=== PATIENT | female | born 1950 | race Caucasian/White ===

== ENCOUNTER → 2016-11-27 | Outpatient (CLI) | payer MEDICARE, MEDICAID ==
--- NOTE | 2016-11-27 14:32 | Diagnostic Imaging Report ---
PROCEDURE: US Bilateral lower extremity arterial. TECHNIQUE: Multiple real-time grayscale images are obtained through both lower extremity arterial systems with color Doppler imaging and color Doppler spectral analysis. INDICATION: Peripheral vascular disease. FINDINGS: There is mild atherosclerotic plaque seen in the femoropopliteal segments bilaterally. Color Doppler demonstrates patency of the vessels in both lower extremities from the common femoral to the posterior tibial and dorsalis pedis arteries bilaterally. Peak systolic velocity in the right common femoral artery is 201 CM/s with a triphasic waveforms. No convincing significant plaque is seen and underlying mild stenosis is suggested. There is transition to biphasic waveforms in the SFA and distally to the foot with velocities ranging from 96 to 124 CM/s. In the left leg, velocity in the common femoral artery is 211 cm/s with triphasic waveform and no significant plaque. The waveforms become biphasic in the SFA and popliteal arteries. There are slightly diminished waveforms in the posterior tibial artery with velocities ranging from 22-40 CM per second. The dorsalis pedis artery velocity is 62 CM per second. Impression: Findings suggestive of mild diffuse disease. Dampened flow in the left [employer] is seen. Dictated by: Dictated on workstation # [id number]
== END ==
LOC: RAD 11:04
PROVIDERS: ATTEND Internal Medicine
DX: I73.9 Peripheral vascular disease, unspecified (principal)
CPT/HCPCS: 93925